=== PATIENT | female | born 1990 | race African-American/Black ===

== ENCOUNTER 2019-08-18 12:57 | Emergency (ER) | payer MEDICAID ==
[~2019-08-18] VITALS: Ht 167.6 cm; Wt 63.0 kg
[2019-08-18] MEDS ORDERED: ONDANSETRON HCL 4MG TABLET PO ONE (14:00)
[2019-08-18] MEDS ORDERED: AZITHROMYCIN 500 MG TABLET PO ONE (14:00)
[2019-08-18] MEDS ORDERED: CEFTRIAXONE SODIUM 250 MG/VIAL IM ONE (14:00)
[2019-08-18 14:29] LABS: CLARITY URINE CLEAR (CLEAR); COLOR URINE YELLOW (YELLOW); KETONES URINE NEGATIVE (NEGATIVE); LEUKOCYTE ESTERASE URINE NEGATIVE (NEGATIVE); NITRITE URINE NEGATIVE (NEGATIVE); OCCULT BLOOD URINE NEGATIVE (NEGATIVE); PH URINE 5.5 (4.5-8.0); PROTEIN URINE NEGATIVE (NEGATIVE); SPECIFIC GRAVITY URINE 1.017 (1.005-1.030); UROBILINOGEN URINE 0.2 E.U./dL (0.2-1.0)
[2019-08-18] MEDS ORDERED: LIDOCAINE HCL 1% 20ML VIAL (Pyxis) INJ INFIL ONE (15:00)
[2019-08-18 15:42] VITALS: BP 113/77
[2019-08-21 07:10] LABS: CHLAMYDIA TRACHOMATIS NAA Negative (Negative); NEISSERIA GONORRHOEAE NAA Negative (Negative)
== END 2019-08-18 15:44 | disposition home or self-care (01) ==
LOC: ER 14:16
DX: A64 Unspecified sexually transmitted disease (principal)
CPT/HCPCS: 81003; 81025; 87210; 87491; 87591; 96372; 99283; J0696; J3490; Q0162

== ENCOUNTER 2019-10-06 14:27 | Emergency (ER) | payer MEDICAID ==
[~2019-10-06] VITALS: Ht 165.1 cm; Wt 64.0 kg
[2019-10-06 14:49] VITALS: BP 106/59
[2019-10-06] MEDS ORDERED: IBUPROFEN 600MG TABLET PO ONE (17:45)
[2019-10-06] MEDS ORDERED: AZITHROMYCIN 500 MG TABLET PO ONE (17:45)
[2019-10-06] MEDS ORDERED: CEFTRIAXONE SODIUM 250 MG/VIAL IM ONE (17:45)
[2019-10-06] MEDS ORDERED: FLUCONAZOLE 100MG TABLET PO ONE (18:30)
[2019-10-06] MEDS ORDERED: FLUCONAZOLE 150MG TABLET PO NR (18:37)
[2019-10-06 18:51] LABS: CLARITY URINE CLEAR (CLEAR); COLOR URINE YELLOW (YELLOW); KETONES URINE NEGATIVE (NEGATIVE); LEUKOCYTE ESTERASE URINE NEGATIVE (NEGATIVE); NITRITE URINE NEGATIVE (NEGATIVE); OCCULT BLOOD URINE 1+ (NEGATIVE); PH URINE 5.5 (4.5-8.0); PROTEIN URINE NEGATIVE (NEGATIVE); SPECIFIC GRAVITY URINE 1.025 (1.005-1.030); UROBILINOGEN URINE 0.2 E.U./dL (0.2-1.0)
== END 2019-10-06 18:36 | disposition home or self-care (01) ==
LOC: ER 14:36
DX: L29.9 Pruritus, unspecified (principal); N89.8 Other specified noninflammatory disorders of vagina; R30.0 Dysuria
CPT/HCPCS: 81003; 81025; 96372; 99283; J0696

== ENCOUNTER 2020-03-02 13:43 | Emergency (ER) | payer MEDICAID ==
[~2020-03-02] VITALS: Ht 165.1 cm; Wt 58.0 kg
[2020-03-02] MEDS ORDERED: IBUPROFEN 400MG TABLET PO ONE (14:45)
[2020-03-02 15:07] VITALS: BP 132/88
== END 2020-03-02 15:08 | disposition home or self-care (01) ==
LOC: ER 13:43
DX: S61.211A Laceration without foreign body of left index finger without damage to nail, initial encounter (principal); E78.00 Pure hypercholesterolemia, unspecified; Z98.890 Other specified postprocedural states; W31.89XA Contact with other specified machinery, initial encounter; Y93.89 Activity, other specified; Y92.89 Other specified places as the place of occurrence of the external cause; Y99.8 Other external cause status
CPT/HCPCS: 99282

== ENCOUNTER 2021-04-28 12:46 | Emergency (ER) | payer MEDICAID ==
[~2021-04-28] VITALS: Ht 167.6 cm; Wt 57.0 kg
[2021-04-28 13:37] VITALS: BP 109/64
== END 2021-04-28 16:24 | disposition left against medical advice (07) ==
LOC: ER 12:46
DX: Z53.21 Procedure and treatment not carried out due to patient leaving prior to being seen by health care provider (principal)

== ENCOUNTER 2021-11-05 07:54 | Emergency (ER) | payer MEDICAID ==
[~2021-11-05] VITALS: Ht 167.6 cm; Wt 60.0 kg
[2021-11-05 08:20] VITALS: BP 107/72
[2021-11-05] MEDS ORDERED: HYDROCODONE/ACETAMINOPHEN 5/325MG TABLET PO ONE (08:30)
== END 2021-11-05 10:05 | disposition home or self-care (01) ==
LOC: ER 07:54
DX: S62.024A Nondisplaced fracture of middle third of navicular [scaphoid] bone of right wrist, initial encounter for closed fracture (principal); W01.198A Fall on same level from slipping, tripping and stumbling with subsequent striking against other object, initial encounter; Y93.89 Activity, other specified; Y92.488 Other paved roadways as the place of occurrence of the external cause
CPT/HCPCS: 29125; 73110; 99283; A4565